=== PATIENT | male | born 1955 | race Caucasian/White ===

== ENCOUNTER → 2018-02-08 | Outpatient (CLI) | payer OTHER ==
[~2018-02-08] MED LIST: ALLO300 PO; ATOR80 PO; Aspir 8181 MG PO; FISH1000 PO; LECITHIN400 MG PO; LISI20 PO; METANX CAPSULE1 EACH PO; METO50 PO; METO50ER PO; NITR.4SL SL; Norco 5-325 Ta1 EACH PO; PSYL5.85P PO; Prilosec Otc20 MG; TICA90TA PO
== END | disposition home or self-care (01) ==
LOC: PLD 08:15 → LAB SHORT 08:15
DX: D48.5 Neoplasm of uncertain behavior of skin (principal)
CPT/HCPCS: 88305

== ENCOUNTER 2020-09-04 05:47 | Emergency (ER) | payer OTHER ==
[~2020-09-04] VITALS: Ht 185.4 cm; Wt 124.7 kg
[2020-09-04 06:29] LABS: BASOPHILS ABSOLUTE AUTO 0.06 K/mm3 (0.00-0.23); BASOPHILS PERCENT AUTO 1 % (0-2); EOSINOPHILS ABSOLUTE AUTO 0.26 K/mm3 (0.00-0.68); EOSINOPHILS PERCENT AUTO 3 % (0-6); Hematocrit 46.1 % (37.0-53.0); Hemoglobin 15.9 g/dL (13.5-17.5); IMMATURE GRAN ABSOLUTE AUTO 0.01 K/mm3 (0.00-0.10); IMMATURE GRAN PERCENT AUTO 0 % (0-1); LYMPHOCYTES ABSOLUTE AUTO 1.38 K/mm3 (0.84-5.20); LYMPHOCYTES PERCENT AUTO 18 % (21-46); MONOCYTES ABSOLUTE AUTO 0.67 K/mm3 (0.16-1.47); MONOCYTES PERCENT AUTO 9 % (4-13); Mean Corpuscular HGB 30.8 pg (26.0-34.0); Mean Corpuscular HGB Conc 34.5 g/dL (31.5-36.5); Mean Corpuscular Volume 89 fL (80-100); Mean Platelet Volume 9.6 fL (9.1-12.4); NEUTROPHILS PERCENT AUTO 69 % (41-73); Platelet Count 187 K/mm3 (150-400); RDW Coefficient Variation 12.9 % (11.7-14.2); RDW Standard Deviation 41.6 fL (35.1-46.3); Red Blood Cell Count 5.17 M/mm3 (4.30-5.90); White Blood Cell Count 7.68 K/mm3 (4.00-11.30)
[2020-09-04 06:55] LABS: Alanine Aminotransfer (ALT/SGP 53 U/L (12-78); Albumin, Blood 3.9 g/dL (3.4-5.0); Albumin/Globulin Ratio 1.1 (0.8-1.8); Alk Phos 81 U/L (50-136); Anion Gap 9 mmol/L (6-16); Aspartate Aminotrans (AST/SGOT 30 U/L (12-37); Bilirubin, Total 0.9 mg/dL (0.1-1.0); Blood Urea Nitrogen 15 mg/dL (8-24); Bun/Creatinine Ratio 17.5 (12.0-20.0); CO2, Blood 24 mmol/L (21-32); Chloride, Blood 108 mmol/L (98-108); Creatinine, Blood 0.86 mg/dL (0.60-1.20); Globulin, Blood 3.5 g/dL (2.2-4.0); Glomerular Filtration Rate >60 (60-); Glucose, Blood 161 mg/dL (70-99); Potassium, Blood 3.8 mmol/L (3.5-5.5); Sodium, Blood 141 mmol/L (136-145); Total Protein, Blood 7.4 g/dL (6.4-8.2); Troponin I <0.015 ng/mL (0.000-0.040)
== END 2020-09-04 10:47 | disposition home or self-care (01) ==
LOC: ER 05:47
PROVIDERS: Emergency Medicine
DX: R07.89 Other chest pain (principal); I25.10 Atherosclerotic heart disease of native coronary artery without angina pectoris; I25.2 Old myocardial infarction; Z79.82 Long term (current) use of aspirin; Z79.899 Other long term (current) drug therapy
CPT/HCPCS: 36415; 71045; 80053; 84484; 85025; 93005; 93010; 99285-25

== ENCOUNTER 2023-05-10 13:54 | Inpatient (IN) | payer MEDICARE ==
[~2023-05-10] VITALS: Ht 185.4 cm; Wt 118.1 kg
[~2023-05-10 13:54] MED LIST changes: +FISH OIL 1,2001 EAC7 PO; -FISH1000 PO; +JARDIANCE10 MG PO; +LOSA50 PO; +Levitra20 MG PO; +METF500C PO; +OMEP20ER PO; +TADA10TA
[2023-05-10 14:40] LABS: BASOPHILS ABSOLUTE AUTO 0.05 K/mm3 (0.00-0.23); BASOPHILS PERCENT AUTO 1 % (0-2); EOSINOPHILS PERCENT AUTO 3 % (0-6); Hematocrit 49.3 % (37.0-53.0); Hemoglobin 17.2 g/dL (13.5-17.5); IMMATURE GRAN ABSOLUTE AUTO 0.01 K/mm3 (0.00-0.10); IMMATURE GRAN PERCENT AUTO 0 % (0-1); LYMPHOCYTES ABSOLUTE AUTO 1.56 K/mm3 (0.84-5.20); LYMPHOCYTES PERCENT AUTO 24 % (21-46); MONOCYTES ABSOLUTE AUTO 0.54 K/mm3 (0.16-1.47); MONOCYTES PERCENT AUTO 8 % (4-13); Mean Corpuscular HGB 30.9 pg (26.0-34.0); Mean Corpuscular HGB Conc 34.9 g/dL (31.5-36.5); Mean Corpuscular Volume 89 fL (80-100); Mean Platelet Volume 9.6 fL (9.1-12.4); NEUTROPHILS PERCENT AUTO 64 % (41-73); Platelet Count 170 K/mm3 (150-400); RDW Coefficient Variation 12.7 % (11.7-14.2); RDW Standard Deviation 41.1 fL (35.1-46.3); Red Blood Cell Count 5.57 M/mm3 (4.30-5.90); White Blood Cell Count 6.56 K/mm3 (4.00-11.30)
[2023-05-10 14:41] LABS: Albumin, Blood 3.6 g/dL (3.4-5.0); Albumin/Globulin Ratio 1.2 (0.8-1.8); Bilirubin, Total 0.7 mg/dL (0.1-1.0); Bun/Creatinine Ratio 16.1 (12.0-20.0); Calcium, Blood 8.4 mg/dL (8.5-10.1); Creatinine, Blood 0.81 mg/dL (0.60-1.20); Globulin, Blood 3.1 g/dL (2.2-4.0); Potassium, Blood 3.8 mmol/L (3.5-5.5); Total Protein, Blood 6.7 g/dL (6.4-8.2)
[2023-05-10] MEDS ORDERED: XARELTO2.5 M1 (15:15)
[2023-05-10 16:51] LABS: International Normalized Ratio 0.99; Prothrombin Time Results 10.4 Sec (9.7-11.5)
[2023-05-10 18:43] VITALS: BP 146/85
[2023-05-10] MEDS ORDERED: METAMUCIL POWD798 GM PO (18:51)
[2023-05-10] MEDS ORDERED: PROBIOTIC1 EA14 PO (18:52)
--- NOTE | 2023-05-10 18:54 | NUR ---
ADMISSION PATIENT ADMITTED TO MEDICAL FLOOR WITH NSTEMI. ELEVATED TROPONIN OVER 7000. PATIENT DENIES ANY CHEST PAIN AT THIS TIME. DENIES ANY SOB. PATIENT ALERT AND ORIENTED. VSS.
[2023-05-10 20:11] VITALS: BP 134/79
--- NOTE | 2023-05-10 21:49 | NUR ---
1899 REPORT FROM DELFINO RN- PT SITTING UP IN BED - DENIES CP- PT C/O MOUTH/TOUNGE NUMBNESS THAT STARTED WITH THE CP- ENCOURAGED PT TO NOTIFY THIS RN IF CP RETURNS OR NUMBNESS IN MOUTH/TOUNGE GETS WORSE- PT AGREED 1999 PT SITTING UP IN BED EATING DINNER- PT AWARE THAT HE IS NPO AT MIDNIGHT CONTINUES TO DENY CP- 2144 REPORT TO ROBERTA KENDALL IN PCU- PT TRANSFERRED VIA
[2023-05-10 22:01] VITALS: BP 132/65
[2023-05-11] VITALS (7 sets, daily range): BP systolic 106–143; BP diastolic 69–84
--- NOTE | 2023-05-11 05:58 | NUR ---
Assumed care of patient as a transfer from medical floor. Independent in room. Denies any pain, CP/pressure. Maintains over 95% on RA. Wears home CPAP at night. First degree AV block on tele in 60's. Trace edema to BLE. Heparin gtt running per emar. Will report to dayshift RN.
[2023-05-11 08:32] LABS: BASOPHILS ABSOLUTE AUTO 0.03 K/mm3 (0.00-0.23); BASOPHILS PERCENT AUTO 1 % (0-2); EOSINOPHILS ABSOLUTE AUTO 0.24 K/mm3 (0.00-0.68); EOSINOPHILS PERCENT AUTO 4 % (0-6); Hematocrit 47.2 % (37.0-53.0); Hemoglobin 16.6 g/dL (13.5-17.5); IMMATURE GRAN PERCENT AUTO 0 % (0-1); LYMPHOCYTES ABSOLUTE AUTO 1.35 K/mm3 (0.84-5.20); LYMPHOCYTES PERCENT AUTO 23 % (21-46); MONOCYTES ABSOLUTE AUTO 0.48 K/mm3 (0.16-1.47); MONOCYTES PERCENT AUTO 8 % (4-13); Mean Corpuscular HGB Conc 35.2 g/dL (31.5-36.5); Mean Corpuscular Volume 88 fL (80-100); Mean Platelet Volume 9.4 fL (9.1-12.4); NEUTROPHILS ABSOLUTE AUTO 3.88 K/mm3 (1.96-9.15); NEUTROPHILS PERCENT AUTO 65 % (41-73); Platelet Count 143 K/mm3 (150-400); RDW Coefficient Variation 12.6 % (11.7-14.2); RDW Standard Deviation 40.8 fL (35.1-46.3); Red Blood Cell Count 5.36 M/mm3 (4.30-5.90); White Blood Cell Count 5.98 K/mm3 (4.00-11.30)
[2023-05-11 09:06] LABS: Albumin, Blood 3.5 g/dL (3.4-5.0); Albumin/Globulin Ratio 1.2 (0.8-1.8); Bilirubin, Total 0.7 mg/dL (0.1-1.0); Bun/Creatinine Ratio 17.4 (12.0-20.0); Calcium, Blood 8.7 mg/dL (8.5-10.1); Creatinine, Blood 0.75 mg/dL (0.60-1.20); Thyroid Stimulating Hormone 1.74 uIU/mL (0.360-4.800); Total Protein, Blood 6.5 g/dL (6.4-8.2)
--- NOTE | 2023-05-11 18:31 | NUR ---
SHIFT SUMMARY ALERT, ORIENTED, COOPERATIVE. INDEPENDENT IN ROOM. DENIES SOB, CP. TOLERATING REGULAR DIET AND LIQUIDS. VOIDING WELL. HEPARIN GTT RUNNING. FAMILY AND FRIENDS ATTENTIVE IN ROOM DURING VISITS. EKG, ECHO COMPLETED THIS SHIFT. TROPONINS PEAKED AT 14,00-, COMING DOWN, LATEST 11,000. PLANNED ANGIO IN AM WITH DR BYERS. NPO AFTER MIDNIGHT. PRN EXCEDRIN FOR HEADACHE.
[2023-05-12 00:30] LABS: BASOPHILS ABSOLUTE AUTO 0.04 K/mm3 (0.00-0.23); BASOPHILS PERCENT AUTO 1 % (0-2); EOSINOPHILS ABSOLUTE AUTO 0.29 K/mm3 (0.00-0.68); EOSINOPHILS PERCENT AUTO 5 % (0-6); Hematocrit 44.9 % (37.0-53.0); Hemoglobin 15.7 g/dL (13.5-17.5); IMMATURE GRAN ABSOLUTE AUTO 0.01 K/mm3 (0.00-0.10); IMMATURE GRAN PERCENT AUTO 0 % (0-1); LYMPHOCYTES ABSOLUTE AUTO 2.13 K/mm3 (0.84-5.20); LYMPHOCYTES PERCENT AUTO 34 % (21-46); MONOCYTES ABSOLUTE AUTO 0.61 K/mm3 (0.16-1.47); MONOCYTES PERCENT AUTO 10 % (4-13); Mean Corpuscular Volume 89 fL (80-100); Mean Platelet Volume 9.8 fL (9.1-12.4); NEUTROPHILS ABSOLUTE AUTO 3.13 K/mm3 (1.96-9.15); NEUTROPHILS PERCENT AUTO 50 % (41-73); Platelet Count 139 K/mm3 (150-400); RDW Coefficient Variation 12.8 % (11.7-14.2); RDW Standard Deviation 41.4 fL (35.1-46.3); Red Blood Cell Count 5.06 M/mm3 (4.30-5.90); White Blood Cell Count 6.21 K/mm3 (4.00-11.30)
[2023-05-12 01:03] LABS: Albumin, Blood 3.2 g/dL (3.4-5.0); Albumin/Globulin Ratio 1.1 (0.8-1.8); Bilirubin, Total 0.6 mg/dL (0.1-1.0); Bun/Creatinine Ratio 21.1 (12.0-20.0); Calcium, Blood 8.5 mg/dL (8.5-10.1); Creatinine, Blood 0.8 mg/dL (0.60-1.20); Globulin, Blood 2.9 g/dL (2.2-4.0); Potassium, Blood 4.3 mmol/L (3.5-5.5); Total Protein, Blood 6.1 g/dL (6.4-8.2)
[2023-05-12 03:09] VITALS: BP 137/90
--- NOTE | 2023-05-12 04:54 | NUR ---
SHIFT SUMMARY NO ACUTE CHANGES THIS SHIFT. VSS. AXO. IN SR 1 DEGREE. ON RA OR CPAP WHILE ASLEEP. PT REMAINS ON HAPRIN GTT, NO S/SX OF BLEEDING NOTED. PT REMAINS CHEST PAIN FREE PER PT REPORT. PT NPO SINCE MIDNIGHT FOR UPCOMING ANGIO TODAY. INDEPENDENT IN ROOM. CALL LIGHT WOTHIN REACH.
[2023-05-12 07:28] VITALS: BP 118/84
[2023-05-12 11:47] VITALS: BP 133/79
[2023-05-12 12:28] VITALS: BP 143/84
[2023-05-12 12:58] VITALS: BP 133/68
--- NOTE | 2023-05-12 14:08 | NUR ---
Pt. is awake in bed and welcomes my visit. Spouse is present. Pt. is pleasant and rapport is quickly established. Facilitated a life review and focused on the issues that brought the Pt. to the hopsital. Considered matters of lisa and belief and how those have supported the Pt. in recent years. Pts. x ray equipment mechanic arrived and updated the Pt. and spouse on test results and informed the Pt. that he would be discharging later today. Prayed with Pt. and spouse. Both verbalized gratitude for the spiritual care visit.
--- NOTE | 2023-05-12 18:06 | NUR ---
DISCHARGE SUMMARY ALERT, ORIENTED, INDEPENDENT. DENIES SOB AND CP. WENT FOR ANGIO WITH DR BYERS THIS AM. NO INTERVENTION. R RADIAL SITE RECOVERED WITHOUT COMPLICATION. SOFT, NON-TENDER, REPORTS FULL SENSATION AND MOVEMENT RO RIGHT HAND AND FINGERS. POST PROCEDURE VSS. TOLERATING REGULAR DIET AND LIQUIDS. VOIDING WELL. DISCHARGE EDUCATION GIVEN ON RADIAL SITE CARE, MEDICATION CHANGES, FOLLOW UP APPTS WITH PCP AND CARDIO. IV DC'D WNL. RIGHT ARM IN SLING WITH ARM BOARD TO RIGHT WRIST. PATIENT LEFT UNIT AT 1755 VIA WHEELCHAIR FOR HOME.
== END 2023-05-12 18:00 | disposition home or self-care (01) | DRG 282 ==
LOC: ER 13:54 → PCU 17:09 → MEDS 17:09 → PCU 21:53
PROVIDERS: Family Medicine; Physician Assistant; Student in an Organized Health Care Education/Training Program; ADMIT Internal Medicine
PROC: 5A09357 Assistance with Respiratory Ventilation, Less than 24 Consecutive Hours, Continuous Positive Airway Pressure (ICD-10-PCS; principal; 2023-05-12)
PROC: B211YZZ Fluoroscopy of Multiple Coronary Arteries using Other Contrast (ICD-10-PCS; 2023-05-12)
PROC: 4A023N7 Measurement of Cardiac Sampling and Pressure, Left Heart, Percutaneous Approach (ICD-10-PCS; 2023-05-12)
PROC: B241YZZ Ultrasonography of Multiple Coronary Arteries using Other Contrast (ICD-10-PCS; 2023-05-12)
DX: I21.4 Non-ST elevation (NSTEMI) myocardial infarction (principal); I25.10 Atherosclerotic heart disease of native coronary artery without angina pectoris; I10 Essential (primary) hypertension; I25.5 Ischemic cardiomyopathy; K21.9 Gastro-esophageal reflux disease without esophagitis; E66.9 Obesity, unspecified; M10.9 Gout, unspecified; E11.40 Type 2 diabetes mellitus with diabetic neuropathy, unspecified; Z79.82 Long term (current) use of aspirin; Z79.899 Other long term (current) drug therapy; Z79.84 Long term (current) use of oral hypoglycemic drugs; I25.2 Old myocardial infarction; Z95.5 Presence of coronary angioplasty implant and graft; Z98.84 Bariatric surgery status; Z89.022 Acquired absence of left finger(s); Z98.890 Other specified postprocedural states; Z79.02 Long term (current) use of antithrombotics/antiplatelets; Z68.33 Body mass index [BMI] 33.0-33.9, adult
CPT/HCPCS: 36415; 71046; 76937; 80053; 82947; 83036; 84443; 84484; 85025; 85610; 85730; 93005; 93010; 93454; 94660; 94762; 96365; 99152; 99285-25; A9270; C1769; C1887; C1894; C8929; J1644; J2250; J3010; J7030; J7050; Q9957; Q9967

== ENCOUNTER 2023-12-22 07:39 | Emergency (ER) | payer MEDICARE ==
[~2023-12-22] VITALS: Ht 182.9 cm; Wt 112.5 kg
[~2023-12-22 07:39] MED LIST changes: +METAMUCIL POWD798 GM PO; +PROBIOTIC1 EA14 PO; +XARELTO2.5 M1
[2023-12-22] MEDS ORDERED: OZEMPIC2 MG/0.75 SQ (08:16)
[2023-12-22] MEDS ORDERED: REPATHA SU140 MG/1 M (08:17)
[2023-12-22 08:38] LABS: BASOPHILS ABSOLUTE AUTO 0.06 K/mm3 (0.00-0.23); BASOPHILS PERCENT AUTO 1 % (0-2); EOSINOPHILS ABSOLUTE AUTO 0.45 K/mm3 (0.00-0.68); EOSINOPHILS PERCENT AUTO 7 % (0-6); Hematocrit 49.2 % (37.0-53.0); Hemoglobin 16.8 g/dL (13.5-17.5); IMMATURE GRAN ABSOLUTE AUTO 0.02 K/mm3 (0.00-0.10); IMMATURE GRAN PERCENT AUTO 0 % (0-1); LYMPHOCYTES ABSOLUTE AUTO 1.57 K/mm3 (0.84-5.20); LYMPHOCYTES PERCENT AUTO 24 % (21-46); MONOCYTES ABSOLUTE AUTO 0.65 K/mm3 (0.16-1.47); MONOCYTES PERCENT AUTO 10 % (4-13); Mean Corpuscular HGB 30.5 pg (26.0-34.0); Mean Corpuscular HGB Conc 34.1 g/dL (31.5-36.5); Mean Corpuscular Volume 90 fL (80-100); Mean Platelet Volume 9.4 fL (9.1-12.4); NEUTROPHILS ABSOLUTE AUTO 3.73 K/mm3 (1.96-9.15); NEUTROPHILS PERCENT AUTO 58 % (41-73); Platelet Count 170 K/mm3 (150-400); RDW Coefficient Variation 12.8 % (11.7-14.2); RDW Standard Deviation 41.9 fL (35.1-46.3); White Blood Cell Count 6.48 K/mm3 (4.00-11.30)
[2023-12-22 09:02] LABS: Albumin, Blood 3.6 g/dL (3.4-5.0); Albumin/Globulin Ratio 1.1 (0.8-1.8); Bilirubin, Total 0.9 mg/dL (0.1-1.0); Bun/Creatinine Ratio 26.2 (12.0-20.0); Calcium, Blood 9.4 mg/dL (8.5-10.1); Creatinine, Blood 0.92 mg/dL (0.60-1.20); Globulin, Blood 3.4 g/dL (2.2-4.0)
--- NOTE | 2023-12-22 10:25 | NUR ---
Pt. is awake in bed and welcomes my visit. Pts. son is at bedside. 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 Pt. is pleasant and awaiting results of enzyme tests, and verbalizes his likely discharge home today. Pryaed with Pt. Pt. vebrlaized gratitude for the spiritual care visit.
[2023-12-22 10:45] VITALS: BP 134/78
== END 2023-12-22 10:56 | disposition home or self-care (01) ==
LOC: ER 07:39
PROVIDERS: Emergency Medicine
DX: R07.9 Chest pain, unspecified (principal); M10.9 Gout, unspecified; I10 Essential (primary) hypertension; I25.10 Atherosclerotic heart disease of native coronary artery without angina pectoris; I25.2 Old myocardial infarction; K21.9 Gastro-esophageal reflux disease without esophagitis; Z79.899 Other long term (current) drug therapy; Z79.82 Long term (current) use of aspirin; Z79.84 Long term (current) use of oral hypoglycemic drugs
CPT/HCPCS: 71045; 80053; 84484; 85025; 93005; 93010; 99285-25

== ENCOUNTER 2024-11-23 13:47 | Emergency (ER) | payer MEDICARE ==
[~2024-11-23] VITALS: Ht 185.4 cm; Wt 114.8 kg
[~2024-11-23 13:47] MED LIST changes: +OZEMPIC2 MG/0.75 SQ; +REPATHA SU140 MG/1 M
[2024-11-23 14:11] LABS: Hematocrit 48.3 % (37.0-53.0); Hemoglobin 16.7 g/dL (13.5-17.5); Mean Corpuscular HGB Conc 34.6 g/dL (31.5-36.5); Mean Corpuscular Volume 90 fL (80-100); Mean Platelet Volume 8.8 fL (9.1-12.4); Platelet Count 155 K/mm3 (150-400); RDW Coefficient Variation 12.7 % (11.7-14.2); RDW Standard Deviation 41.7 fL (35.1-46.3); Red Blood Cell Count 5.39 M/mm3 (4.30-5.90); White Blood Cell Count 7.69 K/mm3 (4.00-11.30)
[2024-11-23 14:31] LABS: BAND PERCENT MAN 16 % (0-8); BASOPHILS ABSOLUTE MAN 0.07 K/mm3 (0.00-0.23); BASOPHILS PERCENT MAN 1 % (0-2); CORONAVIRUS COVID-19 AG Negative (NEGATIVE); EOSINOPHILS PERCENT MAN 0 % (0-6); INFLUENZA A AG Positive (NEGATIVE); INFLUENZA B AG Negative (NEGATIVE); LYMPHOCYTES ABSOLUTE MAN 0.46 K/mm3 (0.84-5.20); LYMPHOCYTES PERCENT MAN 6 % (21-46); MONOCYTES ABSOLUTE MAN 0.84 K/mm3 (0.16-1.47); MONOCYTES PERCENT MAN 11 % (4-13); SEG NEUTROPHILS PERCENT MAN 66 % (41-73); TOTAL CELLS COUNTED 100
[2024-11-23 14:36] LABS: Albumin, Blood 3.5 g/dL (3.4-5.0); Albumin/Globulin Ratio 0.9 (0.8-1.8); Bilirubin, Total 0.7 mg/dL (0.1-1.0); Bun/Creatinine Ratio 21.5 (12.0-20.0); Creatinine, Blood 0.89 mg/dL (0.60-1.20); Globulin, Blood 3.9 g/dL (2.2-4.0); Potassium, Blood 3.8 mmol/L (3.5-5.5); Total Protein, Blood 7.4 g/dL (6.4-8.2)
[2024-11-23] MEDS ORDERED: Ondansetron HCl 2 MG / ML 2ML Vial IV ONE (16:00)
[2024-11-23] MEDS ORDERED: NS 1,000 ML IV SCH (16:00)
[2024-11-23] MEDS ORDERED: Ketorolac Tromethamine 15mg Vial IV ONE (16:00)
[2024-11-23 16:54] LABS: Source, Urine Clean Catch
[2024-11-23 16:57] LABS: Bilirubin, Urine Neg (Neg); Blood, Urine Neg (Neg); Glucose Qualitative, Urine 4+ (Neg); Ketones, Urine 2+ (Neg); Leukocyte Esterase, Urine Neg (Neg); Nitrite, Urine Neg (Neg); Protein, Urine Neg (Neg); Urobilinogen, Urine NORM (Normal)
[2024-11-23 17:04] LABS: Appearance, Urine Clear (Clear); Color, Urine Yellow (P-Yellow)
[2024-11-23] MEDS ORDERED: ONDA4ODT MM (17:19)
[2024-11-23] MEDS ORDERED: RX Prepack 2 Tabs Ondansetron ODT 4MG UD ONE (17:55)
[2024-11-23 18:00] VITALS: BP 132/74
== END 2024-11-23 18:15 | disposition home or self-care (01) ==
LOC: ER 13:47
PROVIDERS: Student in an Organized Health Care Education/Training Program
DX: J10.1 Influenza due to other identified influenza virus with other respiratory manifestations (principal); I25.10 Atherosclerotic heart disease of native coronary artery without angina pectoris; I25.2 Old myocardial infarction; I10 Essential (primary) hypertension; K21.9 Gastro-esophageal reflux disease without esophagitis; Z79.899 Other long term (current) drug therapy; Z79.02 Long term (current) use of antithrombotics/antiplatelets; Z79.82 Long term (current) use of aspirin; Z79.84 Long term (current) use of oral hypoglycemic drugs; Z95.5 Presence of coronary angioplasty implant and graft; Z11.52 Encounter for screening for COVID-19
CPT/HCPCS: 71045; 80053; 81003; 85025; 87428-QW; 93005; 93010; 96361; 96374; 96375; 99285-25; A9270; J1885; J2405; J7030

== ENCOUNTER 2025-10-16 03:17 | Observation (INO) | payer MEDICARE, BC ==
[~2025-10-16] VITALS: Ht 185.4 cm; Wt 105.9 kg
[~2025-10-16 03:17] MED LIST changes: +ONDA4ODT MM; -REPATHA SU140 MG/1 M; +REPATHA SU140 MG/1 M SC; -XARELTO2.5 M1; +XARELTO2.5 M1 PO
[2025-10-16 03:41] LABS: BASOPHILS ABSOLUTE AUTO 0.06 K/mm3 (0.00-0.23); BASOPHILS PERCENT AUTO 1 % (0-2); EOSINOPHILS ABSOLUTE AUTO 0.38 K/mm3 (0.00-0.68); EOSINOPHILS PERCENT AUTO 6 % (0-6); Hematocrit 50.1 % (37.0-53.0); Hemoglobin 17.7 g/dL (13.5-17.5); IMMATURE GRAN ABSOLUTE AUTO 0.01 K/mm3 (0.00-0.10); IMMATURE GRAN PERCENT AUTO 0 % (0-1); LYMPHOCYTES ABSOLUTE AUTO 2.15 K/mm3 (0.84-5.20); LYMPHOCYTES PERCENT AUTO 33 % (21-46); MONOCYTES ABSOLUTE AUTO 0.67 K/mm3 (0.16-1.47); MONOCYTES PERCENT AUTO 10 % (4-13); Mean Corpuscular HGB Conc 35.3 g/dL (31.5-36.5); Mean Corpuscular Volume 90 fL (80-100); NEUTROPHILS ABSOLUTE AUTO 3.27 K/mm3 (1.96-9.15); NEUTROPHILS PERCENT AUTO 50 % (41-73); NRBC ABSOLUTE 0.00 K/mm3 (0.00-0.02); NRBC Auto 0.0 /100 WBC (0.0-0.2); Platelet Count 179 K/mm3 (150-400); RDW Coefficient Variation 12.9 % (11.7-14.2); RDW Standard Deviation 42.0 fL (35.1-46.3)
[2025-10-16 03:58] LABS: Alanine Aminotransfer (ALT/SGP 33.0 U/L (12-78); Albumin, Blood 3.7 g/dL (3.4-5.0); Albumin/Globulin Ratio 1.2 (0.8-1.8); Anion Gap 9.0 mmol/L (3-11); Aspartate Aminotrans (AST/SGOT 27.0 U/L (12-37); Bilirubin, Total 0.5 mg/dL (0.1-1.0); Blood Urea Nitrogen 16.0 mg/dL (8-24); CO2, Blood 25.0 mmol/L (21-32); Calcium, Blood 8.8 mg/dL (8.5-10.1); Chloride, Blood 108.0 mmol/L (98-108); Creatinine, Blood 0.85 mg/dL (0.60-1.20); Globulin, Blood 3.1 g/dL (2.2-4.0); Glucose, Blood 118.0 mg/dL (70-99); Potassium, Blood 4.0 mmol/L (3.5-5.5); Sodium, Blood 138.0 mmol/L (136-145); Total Protein, Blood 6.8 g/dL (6.4-8.2)
[2025-10-16] MEDS ORDERED: FLU VACC TS2025(65UP)/MF59C/PF 45 MCG/0.5 ML SYRINGE IM SCH (09:40)
--- NOTE | 2025-10-16 11:21 | NUR ---
Pt. is awake in bed and welcomes my visit. Pt. is pleasant and is known to this extraction operator from the community. Facilitate a life review and listen with empathy and interest. Pt. displays evidence of being in good spirits. Considered matters of lisa and belief. Prayed with the Pt. Pt. verbalized gratitude for the spiritual care visit.
--- NOTE | 2025-10-16 11:24 | NUR ---
ARRIVAL NOTE: LYLA ARRIVES TO UNIT AND ABLE TO STAND AND WALK TO BED FROM WHEELCHAIR. LYLA IS ALERT AND OREITNED X4 & COOPERATIVE WITH HIS CARE. LYLA ABLE TO WALK TO BATHROOM AND VOIDED IN URINAL. LYLA DENIED ANY CHEST PAIN AT THIS TIME OR ANY PAIN AT ALL. STRESS TEST PORTION TO BE DONE SHORTLY, AWAITING NUCULEAR MED TO COME BY.
[2025-10-16 11:26] VITALS: BP 125/72
[2025-10-16] MEDS ORDERED: Insulin Human Lispro 100 Units/ML 3ML Syringe SC SCH (11:30)
[2025-10-16] MEDS ORDERED: MOUNJARO15 MG/0.5 SC (12:05)
--- NOTE | 2025-10-16 13:31 | NUR ---
HANDOFF: THIS RN TO HANDOFF REPORT TO RECEIVING NURSE. LYLA IS ALERT AND ORIETNED X4 & COOPERATIVE WITH HIS CARE. SATTING >92% ON ROOM AIR. ON TELE SHOWING SINUS RYTHM WITH PAC'S RATE IN 90'S. LYLA DENIED CHEST PAIN/PRESSURE. FIRST PORTION OF STRESS TEST WAS DONE TODAY & LYLA TO BECOME NPO AT MIDNIGHT WITH WATER BEING OKAY. LYLA AWARE HE WILL BECOME NPO. CURRENTLY GETTING ECHO DONE AT BEDSIDE. LYLA HAS CALL LIGHT WITHIN REACH, BED IN LOWEST LOCKED POSITION & STATING NOTING ELSE IS NEEDED AT THIS TIME.
[2025-10-16 15:39] VITALS: BP 153/74
[2025-10-16 16:58] VITALS: BP 145/76
[2025-10-16] MEDS ORDERED: MetFORMIN HCl 500 mg PO SCH (17:00)
--- NOTE | 2025-10-16 17:24 | NUR ---
pt called nurse to room states he is have the same kind of tightness that brought him in today, asked full charge bookkeeper to come to room and do ekg, vs and call Dr. Melgar, this was done, trop was just drawn, pain resolved before we could get him a ntg, no changes noted on ekg, visitor in room, call light in reach.
--- NOTE | 2025-10-16 18:31 | NUR ---
no further chest pain, family at bed side, no further changes this shift, was instructed to call nurse if any symptoms return. call light in reach.
[2025-10-16 19:15] VITALS: BP 115/68
[2025-10-16 23:56] VITALS: BP 132/72
[2025-10-17 04:09] VITALS: BP 142/79
--- NOTE | 2025-10-17 05:17 | NUR ---
NO ACUTE CHANGES DURING SHIFT. PATIENT ABLE TO TURN SELF IN BED, ABLE TO MAKE NEEDS KNOWN. PATIENT ON TELE. NO CHEST PAIN DURING SHIFT. NPO FOR STRESS TEST. BED IN LOW POSITION WITH WHEELS LOCKED. CALL LIGHT WITHIN REACH
[2025-10-17 05:33] LABS: BASOPHILS ABSOLUTE AUTO 0.07 K/mm3 (0.00-0.23); BASOPHILS PERCENT AUTO 1 % (0-2); EOSINOPHILS ABSOLUTE AUTO 0.39 K/mm3 (0.00-0.68); EOSINOPHILS PERCENT AUTO 6 % (0-6); Hematocrit 49.3 % (37.0-53.0); Hemoglobin 17.1 g/dL (13.5-17.5); IMMATURE GRAN ABSOLUTE AUTO 0.02 K/mm3 (0.00-0.10); IMMATURE GRAN PERCENT AUTO 0 % (0-1); LYMPHOCYTES ABSOLUTE AUTO 1.52 K/mm3 (0.84-5.20); LYMPHOCYTES PERCENT AUTO 23 % (21-46); MONOCYTES ABSOLUTE AUTO 0.66 K/mm3 (0.16-1.47); MONOCYTES PERCENT AUTO 10 % (4-13); Mean Corpuscular HGB Conc 34.7 g/dL (31.5-36.5); Mean Corpuscular Volume 90 fL (80-100); NEUTROPHILS ABSOLUTE AUTO 3.97 K/mm3 (1.96-9.15); NEUTROPHILS PERCENT AUTO 60 % (41-73); NRBC ABSOLUTE 0.00 K/mm3 (0.00-0.02); NRBC Auto 0.0 /100 WBC (0.0-0.2); Platelet Count 176 K/mm3 (150-400); RDW Coefficient Variation 12.8 % (11.7-14.2); RDW Standard Deviation 42.0 fL (35.1-46.3)
[2025-10-17 05:48] LABS: Anion Gap 10.0 mmol/L (3-11); Blood Urea Nitrogen 13.0 mg/dL (8-24); CO2, Blood 24.0 mmol/L (21-32); Calcium, Blood 8.7 mg/dL (8.5-10.1); Chloride, Blood 109.0 mmol/L (98-108); Creatinine, Blood 0.74 mg/dL (0.60-1.20); Glucose, Blood 101.0 mg/dL (70-99); Potassium, Blood 3.9 mmol/L (3.5-5.5); Sodium, Blood 139.0 mmol/L (136-145)
[2025-10-17 08:20] VITALS: BP 135/89
--- NOTE | 2025-10-17 08:58 | NUR ---
OUT OF ROOM NOTE: PATIENT LEFT THE ROOM VIA W/C AT THIS TIME TO IMAGING.
[2025-10-17] MEDS ORDERED: Enoxaparin 40 MG/0.4 ML SYR SC SCH (09:00)
[2025-10-17 11:39] VITALS: BP 102/74
--- NOTE | 2025-10-17 11:45 | NUR ---
Pt. is awake in his room. SPouse is present and welcomes my visit. Both the Pt. and spouse are known to this environmental field office manager from the community. Facilitated a lengthy life review. Pt. displayed evidence of being strong and verbalized that he was awaiting results form a stress test. Prayed with the Pt. Both Pt. and spouse verbalize gratitiude for the spiritual care visit.
[2025-10-17] MEDS ORDERED: DOCU100 PO ×2 (11:57)
[2025-10-17] MEDS ORDERED: SENN187 PO ×2 (11:58)
--- NOTE | 2025-10-17 13:35 | NUR ---
DEDICATED DRIVER NOTIFICATION NOTE: NOTIFIED BY DEDICATED DRIVERKELSY PATIENT HR WENT UP TO 140'S BREIFLY. PATIENT WAS AMBULATING TO BATHROOM. PATIENT HR GOING BACK AND FORT TO 110'S 120'S BPM, ST c PAC, 1ST DHB/BBB. PATIENT DENIES CP/PRESSURE, SOB, N/V AND DIZZINESS. NOTIFIED DR. DAVINA newsome THIS CONCERN c NO NEW ORDER RECEIVED AT THIS TIME.
[2025-10-17 14:04] VITALS: BP 115/95
[2025-10-17] MEDS ORDERED: METO25 PO (14:40)
--- NOTE | 2025-10-17 15:12 | NUR ---
SHIFT/DISCHARGE NOTE: PATIENT HAD HIS 2ND PART OF STRESS TEST COMPLETED TODAY. DR. GHOSH DISCUSSED c PATIENT AND SPOUSE AT BEDSIDE REGARDING RESULT AND PLAN OF CARE. PATIENT TACHYCARDIC HR IN 110'S-120'S BPM, DR. GHOSH IS AWARE. PATIENT RECEIVED OT DOSE PO METOPROLOL AND ORDER ZIO PATCH. [facility] CAME OVER AND PLACE ZIO PATCH ON PATIENT AND EDUCATION. PATIENT DENIES CP/PRESSURE, SOB, N/V AND DIZZINESS. PATIENT A/OX4, PLEASANT, COOPERATIVE c CARE, CALLS APPROPRIATELY AND MAKE NEEDS KNOWN. PIV DC'D. PATIENT DISCHARGE HOME. DISCHARGE INSTRUCTIONS PACKET GIVEN TO PATIENT. PATIENT EDUCATED ON ADMITTING DX'S OF CP, S/S, TX AND TO F/U c PCP AND CARDIOLOGY. PATIENT VERBALIZED UNDERSTANDING c NO FURTHER QUESTIONS. RX WAS FAXED TO PATIENT PREFERRED PHARMACY-[facility]. ALL PERSONAL BELONGINGS WERE SENT HOME c PATIENT. PATIENT LEFT THE ROOM AT 1455, TRANSPORTED VIA W/C [facility] HOME DEMONSTRATION AGENT TO PATIENT ENTRANCE, RIDES AWAITING FOR HIM.
== END 2025-10-17 15:08 | disposition home or self-care (01) ==
LOC: ER 03:17 → MEDS 03:18 → ER 03:18 → MEDS 03:18 → ENPENDDIS 10-17 13:18 → MEDS 10-17 15:08
PROVIDERS: Emergency Medicine; ADMIT Student in an Organized Health Care Education/Training Program
DX: R07.89 Other chest pain (principal); I25.10 Atherosclerotic heart disease of native coronary artery without angina pectoris; I25.2 Old myocardial infarction; I77.819 Aortic ectasia, unspecified site; I11.0 Hypertensive heart disease with heart failure; I50.22 Chronic systolic (congestive) heart failure; E11.9 Type 2 diabetes mellitus without complications; K21.9 Gastro-esophageal reflux disease without esophagitis; M10.9 Gout, unspecified; Z95.5 Presence of coronary angioplasty implant and graft; Z79.82 Long term (current) use of aspirin; Z79.84 Long term (current) use of oral hypoglycemic drugs; Z79.01 Long term (current) use of anticoagulants; Z79.85 Long-term (current) use of injectable non-insulin antidiabetic drugs; Z79.899 Other long term (current) drug therapy; Z89.022 Acquired absence of left finger(s)
CPT/HCPCS: 36415; 71045; 78452; 80048; 80053; 82947; 83880; 84484; 85025; 93005; 93010; 93017; 93246; 99285-25; A9270; A9500; C8929; G0378; J0706; J2785; Q9957